=== PATIENT | female | born 1960 | race Caucasian/White ===

== ENCOUNTER 2018-01-12 15:46 | Emergency (ER) | payer MEDICARE, MEDICAID ==
[~2018-01-12] VITALS: Ht 162.6 cm; Wt 65.0 kg
[~2018-01-12 15:46] MED LIST: BUPR150T4; GABA600T2 PO; HYDR50TA65; LEVO75TA56 PO; LORA-512 PO; LURA40TA3; NAPR250T4; QUET25TA PO
[2018-01-12] MEDS ORDERED: TETanus/Pertussis (Acell)/Diphther VAC/PF (Tdap-Adult) 0.5ml syringe IMVAC ONE (21:20)
[2018-01-12] MEDS ORDERED: IBUP-1985 PO (21:40)
[2018-01-12] MEDS ORDERED: HYDR-569 PO (21:40)
[2018-01-12 22:04] VITALS: BP 122/66
== END 2018-01-12 22:07 | disposition home or self-care (01) ==
LOC: ER 15:47
DX: S51.812A Laceration without foreign body of left forearm, initial encounter (principal); Z90.710 Acquired absence of both cervix and uterus; Z98.890 Other specified postprocedural states; Z79.899 Other long term (current) drug therapy; W26.0XXA Contact with knife, initial encounter; Y93.89 Activity, other specified; Y92.89 Other specified places as the place of occurrence of the external cause; Y99.8 Other external cause status
CPT/HCPCS: 73090; 90471; 90715; 99284; A6449

== ENCOUNTER 2019-03-08 12:36 | Emergency (ER) | payer MEDICARE, MEDICAID ==
[~2019-03-08] VITALS: Ht 162.6 cm; Wt 61.4 kg
[~2019-03-08 12:36] MED LIST changes: +GABA600T13 PO; -GABA600T2 PO; +HYDR-4383 PO; +IBUP-1985 PO; -NAPR250T4; +NAPR250T4 PO
[2019-03-08 13:17] LABS: CLARITY,URINE SLIGHTLY CLOUDY (Clear); COLOR,URINE YELLOW (Yellow); GLUCOSE, URINE NEGATIVE (Neg); KETONES,URINE NEGATIVE (Neg); LEUKOCYTE ESTERASE ,URINE LARGE (Neg); NITRITES, URINE POSITIVE (Neg); OCCULT BLOOD,URINE MODERATE (Neg); PROTEIN,URINE 30 mg/dl (Neg)
[2019-03-08 13:18] LABS: UA COLLECTION TYPE VOIDED
[2019-03-08 13:30] LABS: WBC,URINE TNTC /HPF (0-4)
[2019-03-08 13:31] LABS: BACTERIA,URINE 3+ /HPF (Neg)
[2019-03-08 13:32] LABS: SQUAMOUS EPITHELIAL CELL,UR FEW /LPF (FEW)
[2019-03-08 13:45] LABS: BASOPHILS # (AUTO) 0.1 X10'3 (0-0.2); BASOPHILS % (AUTO) 1.1 % (0-1); EOSINOPHILS # (AUTO) 0.2 X10'3 (0-0.9); EOSINOPHILS % (AUTO) 3.6 % (0-6); HEMATOCRIT 38.8 % (35.0-45.0); HEMOGLOBIN 13.2 g/dl (12.0-16.0); LYMPHOCYTES # (AUTO) 1.5 X10'3 (1.1-4.8); LYMPHOCYTES % (AUTO) 29.8 % (21-51); MEAN CORPUSCULAR HEMOGLOBIN 30.4 PG (27.0-31.0); MEAN CORPUSCULAR VOLUME 89.5 FL (78-98); MEAN PLATELET VOLUME 9.6 FL (7.4-10.4); MONOCYTES # (AUTO) 0.5 X10'3 (0-0.9); MONOCYTES % (AUTO) 9.3 % (2-12); NEUTROPHILS # (AUTO) 2.9 X10'3 (1.8-7.7); NEUTROPHILS % (AUTO) 56.2 % (42-75); PLATELET COUNT 206 X10'3 (140-440); RED BLOOD COUNT 4.33 X10'6 (4.20-5.60); RED CELL DISTRIBUTION WIDTH 13.1 % (11.5-14.5); WHITE BLOOD COUNT 5.1 X10'3 (4.5-11.0)
[2019-03-08 14:02] LABS: ALANINE AMINOTRANSFERASE 34 U/L (12-78); ALBUMIN 3.8 G/DL (3.4-5.0); ALBUMIN/GLOBULIN RATIO 1.1 (1.1-1.5); ALKALINE PHOSPHATASE 116 IU/L (46-116); ANION GAP 6 (8-16); ASPARTATE AMINO TRANSFERASE 34 U/L (10-37); BILIRUBIN,TOTAL 0.6 MG/DL (0.1-1.0); BLOOD UREA NITROGEN 16 MG/DL (7-18); BUN/CREATININE RATIO 24.6 (6.6-38.0); CALCIUM 9.1 MG/DL (8.5-10.1); CHLORIDE 105 MMOL/L (99-107); CREATININE 0.65 MG/DL (0.40-0.90); GLUCOSE 81 MG/DL (70-104); POTASSIUM 4.1 MMOL/L (3.5-5.1); SODIUM 140 MMOL/L (135-145); TOTAL CARBON DIOXIDE 28.7 MMOL/L (24-32); TOTAL PROTEIN 7.3 G/DL (6.4-8.2); eGFR > 90 ML/MIN
[2019-03-08] MEDS ORDERED: normal saline 1000ML IV soln IVB ONE (15:15)
[2019-03-08] MEDS ORDERED: CefTRIAXone/D5W-Rocephin 1gm 50 ML IV ONE (15:40)
[2019-03-08 15:50] LABS: URINE AMPHETAMINE SCREEN POSITIVE (Neg); URINE BARBITUATE SCREEN NEGATIVE (Neg); URINE BENZODIAZEPINES SCREEN NEGATIVE (Neg); URINE CANNABINOID SCREEN POSITIVE (Neg); URINE COCAINE SCREEN NEGATIVE (Neg); URINE METHADONE SCREEN NEGATIVE (Neg); URINE OPIATE SCREEN NEGATIVE (Neg); URINE PHENCYCLIDINE SCREEN NEGATIVE (Neg)
[2019-03-08 16:06] LABS: ETHANOL < 0.010 GM/DL (0.0-0.010)
--- NOTE | 2019-03-08 16:50 | NUR ---
PACKET FAXED TO [facility]
--- NOTE | 2019-03-08 17:00 | NUR ---
Pt arrived via W/C accompanied by her son's girlfriend, who is her caregiver, and ED staff. She is pleasant and cooperative with care but does get tearful and states, "I do not want to be here. I do not know why I am here". She is in green scrubs. All personal items inventoried and stored in the ambulance [place] lockers. Medications reconciled, signed and sent to pharmacy. Pt is a current smoker, she smokes approximately a half-pack daily. She does not have dentures because "the dog ate them". She has an appt in March to have them re-made. She wears glasses but they are currently at home. She denies SI/HI, A/VH, She was found in the ED to have UTI and IV fluids and rocephin were given. IV d/c'd in ED. She is currently on a 1798 hold. Snack and water given to patient. Will continue to monitor.
[2019-03-08] MEDS ORDERED: BUSP5TAB3 PO (18:04)
[2019-03-08] MEDS ORDERED: LEVO88TA2 PO (18:04)
[2019-03-08] MEDS ORDERED: BENZ0.5T4 PO (18:04)
[2019-03-08] MEDS ORDERED: DOCU-106 PO (18:04)
[2019-03-08] MEDS ORDERED: VENL75TA90 PO (18:06)
[2019-03-08] MEDS ORDERED: BUPR-83 PO (18:24)
--- NOTE | 2019-03-08 18:50 | NUR ---
Pt was interviewed by [facility]. He states that he discussed with SARAH Saunders who states that he would like to keep the Pt for observation. She was positive for meth and SARAH Angelo wants to wait to see if her mentation improves once the street drugs are no longer in her system.
--- NOTE | 2019-03-08 19:06 | NUR ---
RODNEY Michel #: [phone], Oksana, caregiver #:[phone]
[2019-03-08] MEDS: docusate sod 100mg capsule PO SCH (20:00)
[2019-03-08] MEDS: busPIRone 5mg tablet PO SCH (20:00)
[2019-03-08] MEDS: benztropine 1mg tablet PO SCH (20:00)
[2019-03-08] MEDS: buPROPion SR 150mg tablet PO SCH (20:00)
--- NOTE | 2019-03-08 20:00 | NUR ---
The patient is sitting on the side of her bed. She was friendly on approach. She was assisted to the bathroom via staff and use of her wheel chair. She stated that she has been falling at home. She is currently an elevated fall risk and a fallrisk band was placed on her wrist. She was made aware of this and her bed placement is directly in front of the nursing station for continuous observation. She was made aware that [facility] will come back and speak with her tomorrow and re-assess how she is doing and she was agreeable to this plan. She stated that she has been sleeping good at home. She admits to chronic depression but denies that she is having suicidal thoughts. She denied auditory or visual hallucinations and none were evident during the assessment. She does appear disheveled. She denies s/s of a UTI. The patient has poor insight into why she is here.
--- NOTE | 2019-03-08 21:24 | NUR ---
The patient is currently sleeping.
--- NOTE | 2019-03-08 23:47 | NUR ---
The patient appears to be sleeping
--- NOTE | 2019-03-09 04:51 | NUR ---
The patient appears to have been sleeping well during the night. She was assisted up once to use the bathroom and then went right back to bed.
--- NOTE | 2019-03-09 06:30 | NUR ---
RN received report on pt. pt. sleeping. normal rate and rhythm of resperations noted.
[2019-03-09] MEDS ORDERED: levoTHYROXINE 88mcg tablet PO SCH (08:00)
[2019-03-09] MEDS ORDERED: cephalexin 250mg capsule PO SCH (08:00)
[2019-03-09] MEDS ORDERED: venlafaxine XR 75mg capsule (Q24H) PO SCH (08:00)
--- NOTE | 2019-03-09 08:00 | NUR ---
Pt. used wheel chair to go to BR and void. Pt. now eating breakfast in her bed. Pt. needs assistance opening cartons. Pt. took medication. Denies SI/HI, A/V hallucinations.
[2019-03-09] MEDS: busPIRone 5mg tablet PO SCH (08:36)
[2019-03-09] MEDS: buPROPion SR 150mg tablet PO SCH (08:36)
[2019-03-09] MEDS: docusate sod 100mg capsule PO SCH (08:36)
[2019-03-09] MEDS: benztropine 1mg tablet PO SCH (08:41)
[2019-03-09] MEDS ORDERED: CEPH-572 PO (09:55)
--- NOTE | 2019-03-09 10:00 | NUR ---
Pt. up to toilet. RN received orders for discharge and contacted pt.'s caregiver for pickup.
--- NOTE | 2019-03-09 10:23 | NUR ---
Pt. discharged to home via car transported by rn progressive care unit Oksana. Pt. is calm and cooperative and shows no S&S of psychological or emotional distress. Pt. received all her belongings and has script antibiotic Keflex. RN explained medication regimen and f/u care and pt. verbalized understanding. Pt. denies SI/HI, A/V Hallucinations. Pt. required no nicotine replacement.
[2019-03-09 12:16] VITALS: BP 133/78
== END 2019-03-09 10:23 | disposition home or self-care (01) ==
LOC: ER 12:37
DX: G93.40 Encephalopathy, unspecified (principal); F15.10 Other stimulant abuse, uncomplicated; N39.0 Urinary tract infection, site not specified; R41.0 Disorientation, unspecified; F31.9 Bipolar disorder, unspecified; F20.9 Schizophrenia, unspecified; F17.200 Nicotine dependence, unspecified, uncomplicated; Z90.710 Acquired absence of both cervix and uterus; Z98.890 Other specified postprocedural states; Z79.899 Other long term (current) drug therapy
CPT/HCPCS: 36415; 70450; 80053; 80305; 80320; 81001; 83605; 84443; 85025; 87040; 87077; 87088; 87186; 96365; 99284; J0696; J7030

== ENCOUNTER 2021-07-09 13:54 | Emergency (ER) | payer MEDICARE, MEDICAID ==
[~2021-07-09] VITALS: Ht 162.6 cm; Wt 74.1 kg
[~2021-07-09 13:54] MED LIST changes: +BENZ0.5T4 PO; +BUPR-114 PO; -BUPR150T4; +BUSP5TAB3 PO; +DOCU-106 PO; -HYDR-4383 PO; -HYDR50TA65; -IBUP-1985 PO; -LEVO75TA56 PO; +LEVO88TA2 PO; -LORA-512 PO; -LURA40TA3; +NAPR-1170 PO; -NAPR250T4 PO; -QUET25TA PO; +VENL75TA90 PO
--- NOTE | 2021-07-09 16:53 | NUR ---
dr. ramirez at bedside.
[2021-07-09] MEDS ORDERED: ondansetron 4mg rapidly disintigrating tab PO ONE (16:55)
[2021-07-09] MEDS ORDERED: acetaminophen 325mg tablet PO ONE (16:55)
[2021-07-09] MEDS ORDERED: bacitracin 15gm ointment TP ONE (18:10)
--- NOTE | 2021-07-09 18:31 | NUR ---
bedside report to bernice villalpando.
[2021-07-09 18:42] VITALS: BP 103/53
== END 2021-07-09 18:45 | disposition home or self-care (01) ==
LOC: ER 13:55
DX: S61.212A Laceration without foreign body of right middle finger without damage to nail, initial encounter (principal); S00.81XA Abrasion of other part of head, initial encounter; R42 Dizziness and giddiness; G89.29 Other chronic pain; F31.9 Bipolar disorder, unspecified; F20.9 Schizophrenia, unspecified; F15.90 Other stimulant use, unspecified, uncomplicated; Z90.710 Acquired absence of both cervix and uterus; Z98.890 Other specified postprocedural states; Z72.89 Other problems related to lifestyle; Z79.899 Other long term (current) drug therapy; W19.XXXA Unspecified fall, initial encounter; Y93.89 Activity, other specified; Y92.89 Other specified places as the place of occurrence of the external cause; Y99.8 Other external cause status
CPT/HCPCS: 12002; 70450; 72125; 73140; 99284

== ENCOUNTER 2024-08-21 12:31 | Emergency (ER) | payer MEDICARE, MEDICAID ==
[~2024-08-21] VITALS: Ht 160 cm; Wt 79.0 kg
[~2024-08-21 12:31] MED LIST changes: -BENZ0.5T4 PO; +BENZ0.5T44 PO; +GABA-1405 PO; -GABA600T13 PO
[2024-08-21 12:41] VITALS: TEMP 97.6
--- NOTE | 2024-08-21 12:46 | Physician Documentation ---
History of Present Illness ~ Chief Complaint: Chest Pain Stated Complaint: CP/NUMBNESS Time Seen by MD: 14:37 [facility] 63-[facility] female with a history of Graves disease was at physical therapy today for her back when she experienced acute onset chest pain with shortness of breath. Denies any cardiac history. States that the pain is worse with inspiration. Denies any nausea but says she has left arm numbness Day of Onset: Aug 21, 2024 Medication Reconciliation Allergies: Coded Allergies: No Known Allergies (Unverified , 08/21/24) Scheduled Benztropine Mesylate (Benztropine Mesylate), 1 TAB PO Q12H, (Reported) Bupropion Hcl (Bupropion Hcl Sr), 150 MG PO BID, (Reported) Buspirone Hcl* (Buspar*), 2 TAB PO Q12H, (Reported) Docusate Sodium (Docusate Sodium), 1 CAPSULE PO BID, (Reported) Gabapentin (Gabapentin), 1 TABLET PO TID, (Reported) Levothyroxine Sodium (Synthroid), 1 TAB PO DAILY, (Reported) Naproxen (Naproxen), 500 MG PO BID, (Reported) Venlafaxine HCl (Venlafaxine HCl ER), 1 TAB PO DAILY, (Reported) Scheduled PRN albuterol inhaler (Pro-Air Inhaler), 2 PUFFS INH Q4HPRN PRN for wheezing Past Medical History Past Medical History: Chronic Pain, Bipolar, Depression, Schizophrenia Past Surgical History: hysterectomy, orthopedic surgeries Alcohol Use: Heavy Drug Use: methamphetamine Lives with: Family Lives In: Home Physical Exam Physical Exam General: Alert, no apparent distress. Respiratory: Coarse lung sounds Chest: No accessory muscle use. Cardiovascular: Regular rate and rhythm, no murmurs. Neurologic: Oriented x4. Psychiatric: Normal mood and affect. Skin: Normal color, warm and dry. No edema, no ecchymosis. Progress Results/Orders Results/Orders Orders - JAYLAN SAGE ENGINE BOSS Chest,Single View (08/21/24 12:54) Monitor (08/21/24 12:45) Saline Lock (08/21/24 12:45) Oxygen (08/21/24 12:45) Svn Treatment (08/21/24 ) Completed Orders - JAYLAN SAGE ENGINE BOSS Chest,Single View (08/21/24 12:54) Cbc/Diff (08/21/24 12:45) PBNP (08/21/24 12:45) Electrocardiogram (08/21/24 12:45) CMP (08/21/24 12:45) Hs Troponin I W Calculations (08/21/24 12:46) D-Dimer (08/21/24 12:46) Ipratropium/Albuterol Nebule (Ipratrop/A (08/21/24 14:50) Medications Received in ER Medications (Trade) Dose Ordered Sig/Byron Route PRN Reason Start Time Stop Time Status Last Admin Dose Admin (ipratrop/ albuterol 0.5-3(2.5) MG/3ml nebule) 3 ml ONCE ONCE NEB 08/21/24 14:50 08/21/24 14:51 DC 08/21/24 15:20 3 ML Vital Signs 08/21/24 08/21/24 08/21/24 08/21/24 12:41 14:16 15:03 15:25 Temp 97.6 Pulse 87 79 85 Resp 18 18 18 20 B/P (MAP) 135/86 133/75 (94) Pulse Ox 98 94 99 O2 Delivery Room Air* O2 Flow Rate 0 0 FiO2 N/A 08/21/24 08/21/24 15:25 15:41 Pulse 75 89 Resp 20 18 B/P (MAP) 122/89 Pulse Ox 96 96 O2 Delivery Room Air* O2 Flow Rate 0 FiO2 N/A Laboratory Tests Test 08/21/24 12:46 White Blood Count 8.2 Red Blood Count 4.74 Hemoglobin 14.0 Hematocrit 41.4 Mean Corpuscular Volume 87.3 Mean Corpuscular Hemoglobin 29.5 Mean Corpuscular Hemoglobin Concent 33.8 Red Cell Distribution Width 13.6 Platelet Count 272 Mean Platelet Volume 9.5 Neutrophils (%) (Auto) 63.5 Lymphocytes (%) (Auto) 26.6 Monocytes (%) (Auto) 6.5 Eosinophils (%) (Auto) 2.7 Basophils (%) (Auto) 0.7 Neutrophils # (Auto) 5.2 Lymphocytes # (Auto) 2.2 Monocytes # (Auto) 0.5 Eosinophils # (Auto) 0.2 Basophils # (Auto) 0.1 CBC Comment D-Dimer 0.30 D-Dimer Comment Sodium Level 139 Potassium Level 3.8 Chloride Level 104 Carbon Dioxide Level 29.8 Anion Gap 5 L Blood Urea Nitrogen 9 Creatinine 0.84 Estimated GFR/1.73 m2 69 BUN/Creatinine Ratio 10.7 Glucose Level 144 H Calcium Level 8.7 Total Bilirubin 0.2 Aspartate Amino Transf (AST/SGOT) 19 Alanine Aminotransferase (ALT/SGPT) 26 Alkaline Phosphatase 130 H Troponin I High Sensitivity 5 Pro-B-Type Natriuretic Peptide < 30 Total Protein 7.0 Albumin 3.6 Globulin 3.4 Albumin/Globulin Ratio 1.1 Chemistry Comments Medical Decision Making Findings Patient evaluated for chest pain which her results were very reassuring. He was suspect that she was suffering a URI based on my findings and exam. He was a overall improvement from an SVN treatment I sent her home with an inhaler and advised to increase fluid intake take ibuprofen for symptoms and he was her inhaler as directed. Differential Dx:Considerations: Include: angina, aortic dissection, chest wall pain, cholelithiasis, CHF, costochondritis, esophageal reflux/spasm, gastritis, herpes zoster, myocardial infarction, pericarditis, pleuritis, pancreatitis, pneumonia, pneumothorax, pulmonary embolus, other Departure Disposition: 01 HOME / SELF CARE / HOMELESS Impression: Primary Impression: Tenderness of chest wall Discharge Instructions: Chest Wall Pain, Costochondritis Additional Instructions: With primary care for further evaluation or return to the ED for worsening symptoms Referrals: NO PRIMARY CARE PROVIDER (PCP) Prescriptions albuterol inhaler (Pro-Air Inhaler) 8.5 Gm Inhaler 2 PUFFS INH Q4HPRN PRN for wheezing for 30 Days, #18 GM Prov: JAYLAN SAGE NP 08/21/24 Signature Scribe Signature: y Attestation: The note accurately reflects work and decisions made by me.Jaylan Gloria NP 08/21/24 16:24 JAYLAN SAGE NP Aug 21, 2024 12:46
--- NOTE | 2024-08-21 12:47 | ELECTROCARDIOGRAPH REPORT ---
[facility] Test Date: 2024-08-21 Test Time: 12:45:55 Pat Name: ALAN BENNETT Department: EMERGENCY ROOM Room: Gender: F Value Engineer: VERN : 1960 Requested By: BOBBY SAGE Order Number: [id number] Reading MD: Dr. Angel Juarez Measurements Intervals [place] Rate: 89 P: 69 MS: 156 QRS: 97 QRSD: 93 T: 22 QT: 434 QTc: 529 Interpretive Statements Sinus rhythm Low voltage with right axis deviation Consider anterior infarct Prolonged QT interval Baseline wander in lead(s) I,II,III,aVL,aVF,V2,V6 Electronically Signed On 08-21-2024 19:02:[address] Angel Juarez Please click the below link to view image of tracing.
--- NOTE | 2024-08-21 13:07 | RADIOLOGY REPORT ---
AP portable chest CLINICAL INDICATION: Chest pain FINDINGS: Heart size is normal. No infiltrates or effusions. Atelectasis left lower lobe. Orthopedic hardware in the cervical spine. IMPRESSION: 1. No acute cardiopulmonary pathology
[2024-08-21 13:13] LABS: BASOPHILS # (AUTO) 0.1 X10'3 (0-0.2); BASOPHILS % (AUTO) 0.7 % (0-1); EOSINOPHILS # (AUTO) 0.2 X10'3 (0-0.9); EOSINOPHILS % (AUTO) 2.7 % (0-6); HEMATOCRIT 41.4 % (35.0-45.0); LYMPHOCYTES # (AUTO) 2.2 X10'3 (1.1-4.8); LYMPHOCYTES % (AUTO) 26.6 % (21-51); MEAN CORPUSCULAR HEMOGLOBIN 29.5 PG (27.0-31.0); MEAN CORPUSCULAR HGB CONC 33.8 g/dL (33.0-36.5); MEAN CORPUSCULAR VOLUME 87.3 FL (78-98); MEAN PLATELET VOLUME 9.5 FL (7.4-10.4); MONOCYTES # (AUTO) 0.5 X10'3 (0-0.9); MONOCYTES % (AUTO) 6.5 % (2-12); NEUTROPHILS # (AUTO) 5.2 X10'3 (1.8-7.7); NEUTROPHILS % (AUTO) 63.5 % (42-75); PLATELET COUNT 272 X10'3 (140-440); RED BLOOD COUNT 4.74 X10'6 (4.20-5.60); RED CELL DISTRIBUTION WIDTH 13.6 % (11.5-14.5); WHITE BLOOD COUNT 8.2 X10'3 (4.5-11.0)
[2024-08-21 13:26] LABS: ALANINE AMINOTRANSFERASE 26 U/L (12-78); ALBUMIN 3.6 G/DL (3.4-5.0); ALBUMIN/GLOBULIN RATIO 1.1 (1.1-1.5); ALKALINE PHOSPHATASE 130 IU/L (46-116); ANION GAP 5 (8-16); ASPARTATE AMINO TRANSFERASE 19 U/L (10-37); BILIRUBIN,TOTAL 0.2 MG/DL (0.1-1.0); BLOOD UREA NITROGEN 9 MG/DL (7-18); BUN/CREATININE RATIO 10.7 (10.0-20.0); CALCIUM 8.7 MG/DL (8.5-10.1); CHLORIDE 104 MMOL/L (99-107); CREATININE 0.84 MG/DL (0.40-0.90); GLUCOSE 144 MG/DL (70-104); POTASSIUM 3.8 MMOL/L (3.5-5.1); SODIUM 139 MMOL/L (135-145); TOTAL CARBON DIOXIDE 29.8 MMOL/L (24-32); eCRCL 58 ML/MIN; eGFR 69 ML/MIN
[2024-08-21 13:34] LABS: PRO BRAIN NATRIURETIC PEPTIDE < 30 PG/ML (0-125)
[2024-08-21] MEDS: ipratropium/albuterol 3ml nebule NEB ONE (15:20)
[2024-08-21 15:25] VITALS: PULSE 75; PULSE 85; RESP 20; O2SAT 96; O2SAT 99
[2024-08-21] MEDS ORDERED: ALBU8HFA INH (15:25)
[2024-08-21 15:41] VITALS: BP 122/89; PULSE 89; RESP 18; O2SAT 96
== END 2024-08-21 15:43 | disposition home or self-care (01) ==
LOC: ER 12:31
DX: R07.89 Other chest pain (principal); F20.9 Schizophrenia, unspecified; F31.9 Bipolar disorder, unspecified; F15.90 Other stimulant use, unspecified, uncomplicated; Z90.710 Acquired absence of both cervix and uterus
CPT/HCPCS: 36415; 71045; 80053; 83880; 84484; 85025; 85379; 93005; 94640; 99285

== ENCOUNTER 2025-02-09 10:43 | Outpatient (CLI) | payer MEDICARE, MEDICAID ==
--- NOTE | 2025-02-09 11:56 | RADIOLOGY REPORT ---
Procedure: CT CT CHEST LOW DOSE Reason for study/Clinical History: ENCNTR SCREEN FOR MALIGNANT NEOPLASM OF RESPIRATORY ORGANS COMPARISON: None TECHNIQUE: Multidetector CT of the chest was performed from the lung apices to the upper abdomen without the use of intravenous contract. Axial, coronal and sagittal multiplanar reformats were performed. Radiation Dose Information: CT Dose: CTDI volume is 2.8 mGy. Dose-length product is 97.6 mGy*cm The dose indicators for CT are the volume Computed Tomography (CT) Dose Index (CTDIvol) and the Dose Length Product (DLP), and are measured in units of mGy and mGy-cm, respectively. These indicators are not patient dose, but values generated from the CT scanner acquisition factors. The report includes radiation exposure data for exposures received during this examination. FINDINGS: Lower neck: Normal thyroid. Lungs: No focal consolidation. Dependent subsegmental atelectasis. No suspicious pulmonary nodules. 0.3 cm calcified granuloma in the right middle lobe image 119 0.4 cm calcified granuloma in the right middle lobe, image 129 0.4 cm calcified granuloma in the right middle lobe, image 133 Heart/Vascular Structures: Normal heart size. No pericardial effusion. Lymph Nodes: No adenopathy Pleura: No pleural effusion or significant pneumothorax. Musculoskeletal: No acute osseous abnormality. Soft tissues: Normal. Upper abdomen: Post cholecystectomy IMPRESSION: No suspicious pulmonary nodule. LUNG RADS Category 1: Continue annual screening with LDCT
== END 2025-02-09 23:59 | disposition home or self-care (01) ==
LOC: RAD 10:43
PROVIDERS: ATTEND Student in an Organized Health Care Education/Training Program
DX: Z12.2 Encounter for screening for malignant neoplasm of respiratory organs (principal); J98.11 Atelectasis; J84.10 Pulmonary fibrosis, unspecified; Z87.891 Personal history of nicotine dependence
CPT/HCPCS: 71271

== ENCOUNTER 2025-02-12 10:58 | Outpatient (CLI) | payer MEDICARE, MEDICAID ==
--- NOTE | 2025-02-12 14:47 | RADIOLOGY REPORT ---
CLINICAL INFORMATION: 64 years old, Female; LOW BACK PAIN. TECHNIQUE: Multisequence multiplanar MRI images of the lumbar spine were obtained without contrast. COMPARISON: None INTERPRETATION: Straightening of the normal lumbar lordosis. Minimal retrolisthesis of L3 on L4. Vertebral body heights are maintained. Posterior elements are intact. Prominent Modic type 1 endplate changes at L3-L4 and L4- L5. Mild Modic type 1 endplate changes at L2-L3. Visualized spinal cord and cauda equina are within normal limits. The conus medullaris is appropriate in signal at the T12-L1 level. [id number] fatty atrophy of the paraspinal musculature of the lower lumbosacral spine. L1-L2: Disc desiccation. No significant spinal canal or neural foraminal stenosis. L2-L3: Disc desiccation with [id number] disc space narrowing and diffuse disc bulge with concomitant facet hypertrophy and infolding of the ligamentum flavum contributing to moderate to severe spinal canal stenosis and effacement of the lateral recesses. Moderate bilateral neural foraminal stenoses. L3-L4: Disc desiccation with severe disc space narrowing and diffuse disc bulge causing severe spinal canal stenosis with crowding of the cauda equina and effacement of the lateral recesses. Facet hypertrophy and encroachment of the neural foramina by the disc bulge contributes to severe bilateral neural foraminal stenoses. L4-L5: Disc desiccation with moderate to severe disc space narrowing. Diffuse disc bulge with mild spinal canal stenosis. Partial effacement of the lateral recesses bilaterally. Facet hypertrophy with severe bilateral neural foraminal stenoses, left slightly greater than right. L5-S1: Disc desiccation. No significant spinal canal stenosis. Facet hypertrophy with mild bilateral neural foraminal stenoses. IMPRESSION: 1. Degenerative disc disease and facet disease in the lumbar spine with associated spinal canal, subarticular, and neural foraminal stenoses as detailed above. 2. Minimal retrolisthesis of L3 on L 3. Additional findings as detailed above.
== END 2025-02-12 23:59 | disposition home or self-care (01) ==
LOC: MRI02 10:58
PROVIDERS: ATTEND Student in an Organized Health Care Education/Training Program
DX: M51.369 Other intervertebral disc degeneration, lumbar region without mention of lumbar back pain or lower extremity pain (principal); M47.816 Spondylosis without myelopathy or radiculopathy, lumbar region; M54.50 Low back pain, unspecified
CPT/HCPCS: 72148